=== PATIENT | female | born 1985 | race Caucasian/White ===

== ENCOUNTER → 2020-08-12 08:10 | Outpatient (BNVA) | payer OTHER, SELFPAY | PROVIDERS: Visit Provider Obstetrics & Gynecology | DX: Z32.01 Encounter for pregnancy test, result positive (principal) | CPT/HCPCS: 81025 ==

== ENCOUNTER → 2020-09-03 09:09 | Outpatient (BNVA) | payer OTHER, SELFPAY | PROVIDERS: Visit Provider Nurse Practitioner Women's Health | DX: O09.91 Supervision of high risk pregnancy, unspecified, first trimester (principal); O34.219 Maternal care for unspecified type scar from previous cesarean delivery; Z87.59 Personal history of other complications of pregnancy, childbirth and the puerperium; O36.80X0 Pregnancy with inconclusive fetal viability, not applicable or unspecified; A60.04 Herpesviral vulvovaginitis; R31.21 Asymptomatic microscopic hematuria; O98.311 Other infections with a predominantly sexual mode of transmission complicating pregnancy, first trimester; Z3A.08 8 weeks gestation of pregnancy | CPT/HCPCS: 84315; 87077; 87086; 87184 ==

== ENCOUNTER → 2020-09-16 11:21 | Outpatient (BNVA) | payer OTHER, SELFPAY | PROVIDERS: Visit Provider Obstetrics & Gynecology | DX: O09.91 Supervision of high risk pregnancy, unspecified, first trimester (principal); O21.9 Vomiting of pregnancy, unspecified; Z87.59 Personal history of other complications of pregnancy, childbirth and the puerperium; O34.219 Maternal care for unspecified type scar from previous cesarean delivery; A60.04 Herpesviral vulvovaginitis; O99.891 Other specified diseases and conditions complicating pregnancy; R82.71 Bacteriuria | CPT/HCPCS: 80053; 80307; 82570; 84156; 84315; 84443; 85027; 86592; 86762; 86803; 86850; 86900; 87086; 87340 ==

== ENCOUNTER → 2020-09-30 08:40 | Outpatient (BNVA) | payer OTHER, SELFPAY | PROVIDERS: Visit Provider Obstetrics & Gynecology | DX: O09.291 Supervision of pregnancy with other poor reproductive or obstetric history, first trimester (principal); O09.91 Supervision of high risk pregnancy, unspecified, first trimester; O21.9 Vomiting of pregnancy, unspecified; O34.219 Maternal care for unspecified type scar from previous cesarean delivery; A60.04 Herpesviral vulvovaginitis; O99.891 Other specified diseases and conditions complicating pregnancy; R82.71 Bacteriuria; N83.8 Other noninflammatory disorders of ovary, fallopian tube and broad ligament; Z3A.12 12 weeks gestation of pregnancy | CPT/HCPCS: 84315; 87086; 87491; 87591 ==

== ENCOUNTER → 2020-10-16 00:01 | Outpatient (BNVA) | payer OTHER, SELFPAY | PROVIDERS: Visit Provider Obstetrics & Gynecology | DX: Z87.59 Personal history of other complications of pregnancy, childbirth and the puerperium (principal) | CPT/HCPCS: 84156 ==

== ENCOUNTER → 2020-10-29 15:13 | Outpatient (BNVA) | payer OTHER, SELFPAY | PROVIDERS: Visit Provider Nurse Practitioner Women's Health | DX: O09.91 Supervision of high risk pregnancy, unspecified, first trimester (principal); Z87.59 Personal history of other complications of pregnancy, childbirth and the puerperium; O34.219 Maternal care for unspecified type scar from previous cesarean delivery; O99.891 Other specified diseases and conditions complicating pregnancy; R82.71 Bacteriuria; N83.8 Other noninflammatory disorders of ovary, fallopian tube and broad ligament; O21.9 Vomiting of pregnancy, unspecified; A60.04 Herpesviral vulvovaginitis | CPT/HCPCS: 84315; 87077; 87086; 87184 ==

== ENCOUNTER → 2020-12-03 10:40 | Outpatient (BNVA) | payer OTHER, SELFPAY | PROVIDERS: Visit Provider Obstetrics & Gynecology | DX: O99.891 Other specified diseases and conditions complicating pregnancy (principal); R82.71 Bacteriuria; O09.91 Supervision of high risk pregnancy, unspecified, first trimester | CPT/HCPCS: 84315; 87086 ==

== ENCOUNTER 2021-01-04 04:00 | Outpatient (CLI) | payer OTHER, SELFPAY ==
[2021-01-04] VITALS (55 sets, daily range): BP systolic 96–131; BP diastolic 51–86; PULSE 81–122; RESP 16; TEMP 36.2–36.4; O2SAT 95–99; BMI 34.2
--- NOTE | 2021-01-04 04:51 | USR_ITS ---
PROCEDURE INFORMATION: Exam: US , Limited Exam date and time: 01/04/2021 4:51 AM Age: 35 years old Clinical indication: Lmp or gestational age (in weeks): 26 weeks 1 day; Other: Vaginal bleeding; ; Patient HX: H/o c-sec; Additional info: Vaginal bleeding at 26 weeks, placental location and cervical length TECHNIQUE: Imaging protocol: Real-time ultrasound of the maternal uterus with image documentation. Exam focused on the clinical indication. COMPARISON: US OB follow up [facility] 12/24/2020 3:04 PM FINDINGS: Gestation: Intrauterine gestation. presentation: Breech presentation heart rate: heart rate 171 bpm. Placenta: Placenta is posterior; No previa. Amniotic fluid: Largest amniotic fluid pocket 9.4 cm BIOMETRY: Gestational age (AUA): Single live intrauterine gestation with the estimated gestational age of approximately 26 weeks 1 day by last menstrual period. Estimated due date (AUA): Estimated due date 04-11-21 MATERNAL: Cervix: Cervical length 3.3 cm US/US OB limited [id number] IMPRESSION: 1. Single live intrauterine gestation with the estimated gestational age of approximately 26 weeks 1 day by last menstrual period. . 2. heart rate 171 bpm.
[2021-01-04] MEDS: NIFEdipine 10 mg Capsule 30 MG PO (05:20)
[2021-01-04 05:44] LABS: Add Urine Culture? No; Bacteria Urine TRACE /hpf; Bilirubin Urine Neg (Negative); Blood Urine 3+ (Negative); Glucose Urine UA Norm (Normal); Ketones Urine Negative (Negative); Leukocyte Esterase Urine Negative (Negative); Nitrate Urine Negative (Negative); Protein Urine Neg (Negative); Squamous Epithelial Cell Urine 0-4 /hpf (0-5); Urine Appearance Clear (CLEAR); Urine Color Yellow (Yellow); Urobilinogen Urine 1 mg/dL (Negative); pH Urine 6 (5-7)
--- NOTE | 2021-01-04 10:48 | P.SS_ITS ---
Short Stay Summary Providers Date of Admit/Discharge: 01/04/21 Attending Provider: Norris Resendiz MD Primary Care Provider: [facility] Chief Complaint: VAGINAL BLEEDING HPI History of Present Illness Katharina Whitfield is a 35 year old female with an LMP of 07/05/2020 and an EDC of 04/11/2021 by LMP consistent with 8 week ultrasound, placing her at 26 1/7 weeks today. came to L&D with CC of vaginal bleeding. Review of Systems Const: Denies: fever(s) Card: Denies: swelling of feet/ankles GI: Reports: constipation; Denies: abdominal pain, nausea or vomiting : Denies: dysuria, vaginal bleeding (bleeding had stopped), vaginal discharge or other (contractions/leaking fluid ) Musc: Reports: back pain and other (right leg pain ) Neuro: Denies: headache(s) Home Meds/Allergies Home Medications and Allergies Home Medications Medication Instructions Recorded Confirmed Type L.acid,gasseri,plant,rham-B.animalis-cran mg PO 03/07/20 12/24/20 History 5 billion cell-250mg capsule acyclovir 400 mg tablet 400 mg PO BID 03/07/20 01/04/21 History prenat.vits,laurie,kwa-szkk-qzktc 1 tab PO DAILY 09/03/20 01/04/21 History aspirin 81 mg chewable tablet 81 mg PO DAILY 09/30/20 01/04/21 History acetaminophen 325 mg capsule 325 mg PO QID PRN 12/24/20 12/24/20 History Allergies Allergy/AdvReac Type Severity Reaction Status Date / Time No Known Allergies Allergy Verified 12/24/20 15:43 PFSH Acute PFSH: Medical History No pertinent past medical history Denies diabetes, asthma, hypertension, seizures, DVT/PE. PCP: Dr. Hilton Surgical History S/P primary low transverse 01/13/2019--performed by Dr. Navarro at [facility] in [place], [place] done for arrest of descent. Documented low transverse uterine incision with 2 layer closure of the uterus Family History Father Diabetes Grandfather Diabetes Paternal Family/Other Breast cancer Maternal aunt--- dx age 55 Sister Uterine cancer dx age 28 Mother Stroke Denies family history of Colon cancer Ovarian cancer Heart disease Hypercholesteremia Hypertension Thyroid disease Female Reproductive History: : 3 Vitals/I&O/Wt Last Vital Signs Temp 97.2 F L 01/04/21 04:26 Pulse 88 01/04/21 10:30 BP 118/73 01/04/21 10:30 Pulse Ox 98 01/04/21 08:12 Weight last 48 hrs Weight 84.822 kg Physical Exam Narrative: EXAM NARRATIVE: GA: Alert and oriented ?3. Lungs: Clear to auscultation bilaterally. Heart: Regular rhythm and rate. Abdomen: Gravid, full the height equals dates, nontender. TALENT DEVELOPMENT ANALYST: SVE; dilation: 0 cm, effacement: 0%, station: -5, presentation: [], membranes: []. Extremities: no edema, no cyanosis, no calves pain. heart tracing: Basal rate: 140's bpm, Variability: moderate for EGA, Accelerations: present, Decelerations: absent, Contraction: stopped. SSS Data Data Completed and Pending: Completed Studies During Hospitalization Category Date Time Status US OB limited [id number] Routine Ultrasound 01/04/21 04:51 Completed Diagnoses at Discharge Discharge Diagnosis (1) Vaginal bleeding during : Status: Acute Permanent problem details: Ms. Whitfield is a 35 year old with an LMP of 07/05/2020 and an EDC of 04/11/2021 by LMP consistent with 8 week ultrasound, placing her at 26 1/7 weeks today. Came to labor and delivery triage with a chief complaint of vaginal bleeding after intercourse with her . An ultrasound was ordered which was delayed and report was not available after the patient had been in triage for greater than 4 hours. Ultrasound correlate with estimated gestational age cervix is long and closed, the placenta is posterior no previa. uterine irritability has stopped. No further bleeding. Patient was discharged home with instructions and precautions on pelvic rest until further notice and follow-up with care as scheduled. (2) Rh negative, antepartum: Status: Acute (3) Previous delivery affecting : Status: Acute (4) Supervision of high-risk : Status: Acute Qualifiers: Trimester: first trimester Qualified Code(s): O09.91 - Supervision of high risk , unspecified, first trimester Discharge Plan Discharge Patient Disposition: Home Prescriptions: No Action acyclovir 400 mg tablet 400 mg PO BID RF: 0 up4 Probiotics Women's 5 billion cell- 250 mg capsule PO RF: 0 aspirin [Tylor Chewable Aspirin] 81 mg tablet,chewable 81 mg PO DAILY RF: 0 acetaminophen [Tylenol] 325 mg capsule 325 mg PO QID PRNRF: 0 prenat.vits,laurie,qzj-akag-hbiwu Tablet 1 tab PO DAILY RF: 0 Discharge Orders: Discharge Order (Routine); Ordered 01/04/21 Ordered By: Norris Resendiz Referrals: Megan Garduno MD [Physician] - 7-10 days (f/u as scheduled.) Diet: Usual diet Activity: Increase activity as tolerated Patient Instructions: Labor (GEN), OB Undelivered Discharge Activity Restrictions/Additional Instructions: Pelvic rest until further notice (no sex, no tampons, no vaginal douches). Return to the emergency room if any fever, increased bleeding or pain. Attestations Medical Necessity Statement*: In my professional opinion per chief complaint. Time Spent in Patient Care*: greater than 30 min Quality Metrics Clinical Quality Measures: During this hospital stay, did patient experience: None Coding Level of Care Code Acute Cosmetology Professor for Chg Fwd Diagnoses Vaginal bleeding during O46.90 Rh negative, antepartum O26.899; Z67.91 Previous delivery affecting O34.219 Supervision of high-risk O09.91 Trimester: first trimester
== END 2021-01-04 10:48 | disposition home or self-care (01) ==
LOC: OPOB 04:12 → OBGYN 04:16
PROVIDERS: Family Provider Obstetrics & Gynecology; Visit Provider Obstetrics & Gynecology
DX: O46.90 Antepartum hemorrhage, unspecified, unspecified trimester (principal); Z67.91 Unspecified blood type, Rh negative; O34.219 Maternal care for unspecified type scar from previous cesarean delivery; Z3A.00 Weeks of gestation of pregnancy not specified
CPT/HCPCS: 76815; 81001; 99211

== ENCOUNTER → 2021-01-23 09:40 | Outpatient (BNVA) | payer OTHER, SELFPAY | PROVIDERS: Family Provider Obstetrics & Gynecology; Visit Provider Obstetrics & Gynecology | DX: O09.91 Supervision of high risk pregnancy, unspecified, first trimester (principal); O26.899 Other specified pregnancy related conditions, unspecified trimester; Z67.91 Unspecified blood type, Rh negative; O99.891 Other specified diseases and conditions complicating pregnancy; R82.71 Bacteriuria; A60.04 Herpesviral vulvovaginitis; Z87.59 Personal history of other complications of pregnancy, childbirth and the puerperium | CPT/HCPCS: 82950; 84315; 85025; 86850 ==

== ENCOUNTER → 2021-03-18 12:38 | Outpatient (BNVA) | payer OTHER, SELFPAY | PROVIDERS: Family Provider Obstetrics & Gynecology; Visit Provider Obstetrics & Gynecology | DX: O09.91 Supervision of high risk pregnancy, unspecified, first trimester (principal) | CPT/HCPCS: 84315; 87081 ==

== ENCOUNTER 2021-03-30 09:45 | Inpatient (IN) | payer OTHER, SELFPAY ==
[2021-03-30] VITALS (34 sets, daily range): BP systolic 120–149; BP diastolic 65–98; PULSE 52–83; RESP 15–17; TEMP 36.3; O2SAT 95–96; BMI 32.5
[2021-03-30 10:15] LABS: Actim Prom Positive
[2021-03-30] MEDS: dextrose 5%-lactated ringers 1,000 ML 999 ML IV (10:19)
[2021-03-30 10:56] LABS: Bilirubin Urine Neg (Negative); Blood Urine Neg (Negative); Glucose Urine UA Norm (Normal); Ketones Urine Negative (Negative); Leukocyte Esterase Urine Negative (Negative); Nitrate Urine Negative (Negative); Protein Urine Neg (Negative); Specific Gravity, Urine 1.015 (1.005-1.030); Urine Appearance Clear (CLEAR); Urine Color Yellow (Yellow); Urobilinogen Urine Norm (Negative); pH Urine 8 (5-7)
[2021-03-30 11:02] LABS: Add Urine Culture? No; Bacteria Urine 1+ /hpf; Squamous Epithelial Cell Urine 15-25 /hpf (0-5)
[2021-03-30 12:14] LABS: Basophils % 0.3 %; Eosinophils % 0.2 %; Hematocrit 37.3 % (37.0-47.0); Hemoglobin 11.7 g/dL (11.5-15.3); Lymphocytes % 20.2 %; Mean Corpuscular HGB Conc 31.4 g/dL (30.0-36.0); Mean Corpuscular Hemoglobin 27.1 pg (28.0-34.0); Mean Corpuscular Volume 86.3 fl (81-99); Mean Platelet Volume 10.3 fL (7.4-10.4); Monocytes # 0.8 10^3/uL (0.2-0.9); Monocytes % 7.7 %; Neutrophils # 6.88 10^3/uL (1.8-7.7); Neutrophils % 71.2 %; Nucleated Red Blood Cells % 0 %; Platelet Count 190 10^3/cmm (130-400); Red Blood Count 4.32 10^6/uL (4.1-5.3); Red Cell Distribution Width 15.6 % (12.1-15.1); White Blood Count 9.7 10^3/uL (4.0-10.0)
--- NOTE | 2021-03-30 12:46 | PM.OPHPUD ---
Labor & Delivery H&P Update Date of Procedure: March 30, 2021 Date H&P Performed: 03/24/21 H&P update information: I have reviewed H&P completed within last 30 days, I have examined patient prior to procedure and Changes to prior documentation as noted here Changes to previous documentation: The patient presents for PROM. No cervical change. ROM confirmed with actin prom. Will proceed with repeat and BTL. Admission Diagnosis: iup at 38 weeks and 2 days Planned procedure: repeat with BTL Related Problem List Diagnoses (1) Rh negative, antepartum: (2) Request for sterilization: (3) History of gestational hypertension: (4) Previous delivery affecting : (5) Supervision of high-risk : (6) Herpes, vulvovaginitis:
[2021-03-30] MEDS: famotidine 20 mg/2 mL INJ IVP (13:14)
[2021-03-30] MEDS: lactated ringers 1,000 ML 999 ML IV ×2 (13:15→21:49)
--- NOTE | 2021-03-30 13:51 | ANES.PREANE2 ---
Pre-Anesthetic Assessment Pre-Anesthetic Assessment: Height/Weight: Height 1.57 m Weight 80.739 kg Pulse BP 67 136/83 03/30/21 12:52 03/30/21 12:52 Preop Diagnosis: IUP Proposed Procedure: Repeat Familial anesthetic complications: None Was Beta Guy taken within 24 hours: N/A Was Clonidine taken within 24 hours: N/A Last intake: Intake Last Liquid Date 03/30/21 Last Liquid Time 06:15 Last Solid Date 03/30/21 Last Solid Time 20:00 Social: Social History: No alcohol and No tobacco Exam: Pre-Anes Outpt Exam: alert, oriented x 3, clear to auscultation bilaterally and regular rate & rhythm Airway: Cervical ROM: WNL MP: 2 Dentition: Full CV/HEM: CV/HEM: HTN Comments: gestational HTN Anesthetic Plan: ASA status: 3 Anesthesia: Regional (specify below) (Spinal) Risk of > 500 ml blood loss (7ml/kg in children): No Meds/Allergies Current Medications: Current Medications Generic Name Dose Route Start Last Admin Trade Name Freq PRN Reason Stop Dose Admin Dextrose/Lactated Ringer's 1,000 mls @ 999 m ls/hr 03/30/21 10:15 03/30/21 10:19 Dextrose 5%-Lact ated Ringers IV 999 mls/hr .Q1H1M BHAVANA Administration Lactated Ringer's 1,000 mls @ 999 m ls/hr 03/30/21 13:15 03/30/21 13:15 Lactated Ringers IV 03/30/21 15:15 999 mls/hr .Q1H1M BHAVANA Administration PFSH Anesthesia PFSH: Medical History No pertinent past medical history Denies diabetes, asthma, hypertension, seizures, DVT/PE. PCP: Dr. Hilton Surgical History S/P primary low transverse 01/13/2019--performed by Dr. Navarro at [facility] in [place], [place] done for arrest of descent. Documented low transverse uterine incision with 2 layer closure of the uterus Family History Father Diabetes Grandfather Diabetes Paternal Family/Other Breast cancer Maternal aunt--- dx age 55 Sister Uterine cancer dx age 28 Mother Stroke Denies family history of Colon cancer Ovarian cancer Heart disease Hypercholesteremia Hypertension Thyroid disease Female Reproductive History: : 3 Data Anesthesia CBC & Chem 7: 03/30/21 11:55 Other Labs: Laboratory Results - last 48 hr 03/30/21 03/30/21 03/30/21 09:45 10:00 11:55 WBC 9.7 RBC 4.32 Hgb 11.7 Hct 37.3 MCV 86.3 MCH 27.1 L MCHC 31.4 RDW 15.6 H Plt Count 190 MPV 10.3 Neut % (Auto) 71.2 Lymph % (Auto) 20.2 [place] % (Auto) 7.7 Eos % (Auto) 0.2 Baso % (Auto) 0.3 Neut # (Auto) 6.88 Lymph # (Auto) 2.0 [place] # (Auto) 0.8 Eos # (Auto) 0.0 Baso # (Auto) 0.0 Nucleated RBC % (auto) 0 Nucleated RBCs # 0.0 Insulin-like GF I Positive Urine Color Yellow Urine Appearance Clear Urine pH 8 H Ur Specific [place] 1.015 Urine Protein Neg Urine Glucose (UA) Norm Urine Ketones Negative Urine Blood Neg Urine Nitrate Negative Urine Bilirubin Neg Urine Urobilinogen Norm Ur Leukocyte Esterase Negative Urine RBC None Urine WBC 10-15 H Ur Squamous Epith Cells 15-25 H Amorphous Sediment Not Reportable Urine Bacteria 1+ H Cardiac Studies: No Data to Display
[2021-03-30 14:07] LABS: Glucose Point of Care 58 mg/dL (70-110)
[2021-03-30] MEDS: dextrose 50% syringe 50 mL 25 ML IVP (14:17)
--- NOTE | 2021-03-30 14:25 | PC.NURSE ---
Patient hit call light and stated that she felt clammy, shaky, and felt like her blood sugar was low. Patient reports she has not ate since last night. Blood glucose was checked and order from anesthesia was received to give 1/2 d50 at this time.
--- NOTE | 2021-03-30 17:24 | P.OP_ITS ---
Operative Report Date of procedure: March 30, 2021 Pre-op Diagnosis: IUP at 38 weeks and 2 days, PROM, desires permanant sterilization Post-op diagnosis: same Procedure Done: repeat with bilateral salpingectomy Specimens removed/disposition: bilateral segments of fallopian tubes. Left tube with 3 cm mass. to pathology Surgeon: Shira Heck Anesthesia: Other (spinal) Estimated blood loss (mL): 200 IV fluids (mL): 1,750 Urine output (mL): 100 Complications: none Findings: term male in the cephalic presentation. Normal appearing uterus and ovaries. 3 cm mass on left fallopian tube. Bilateral tubes and mass removed Condition: stable Disposition: floor Brief History: The patient presented with complaint of PROM at 6:15 this am. ROM confirmed with Actinprom. Procedure: The patient was taken to the operating room where spinal anesthesia was administered and found to be adequate. She was prepped and draped in the normal sterile fashion in the dorsal supine position with a leftward tilt. A Pfannenstiel skin incision was made and carried down to the underlying layer of fascia. The fascia was nicked in the midline and extended laterally with the Alvarez scissors. The fascia was then tented up and the rectus muscles dissected off sharply. The rectus muscles were and the peritoneum entered bluntly with the digit. The peritoneal incision was extended superiorly and inferiorly with good visualization of the bladder. The Gil O retractor was placed. It was clear of any bowel or omentum. The bladder flap was created sharply with the Metzenbaum scissors. A low transverse uterine incision was made and carried down to the bag of water. The bag of water was ruptured and the uterine incision extended cephalocaudad. The scalp was grasped and brought through the incision. The nose and mouth were bulb suctioned. The shoulders and body delivered atraumatically. The baby was allowed to rest, while being dried, for 1 minute and then the cord was clamped and cut. The baby was handed to the waiting ribbon hanking machine operator. The placenta was delivered by expression. The uterus was exteriorized and cleared of all clots and debris. The uterine incision was closed with 0 Vicryl in a running fashion. A second imbricating layer of 3-0 Monocryl was used to close the uterus. The bladder flap was closed with 3-0 Monocryl. There was excellent hemostasis. Using the cautery device, the bilateral fallopian tubes were at the cornua of the uterus. The mesosalpinx was cauterized just inferior to the fallopian tubes until the entire tube was removed. This was performed the same way on both sides. The Gil O retractor was removed. The uterus was returned to the abdomen. The peritoneum was closed with 3-0 Monocryl, incorporating the rectus muscle. The fascia was closed with 0 Vicryl in 2 separate sutures overlapping in the midline. The skin was closed with absorbable amandeep. Apgars on baby 8 at 1 minute and 9 at 5 minutes. weight 8 pounds 12 ounces. Mother and baby were stable post delivery.
--- NOTE | 2021-03-30 18:00 | PC.NURSE ---
PT MOVED FROM OB-OR1 TO OB-8 VIA BED. ORIENTED TO ROOM/CALL LIGHT. INSTRUCTED NOT TO GET OUT OF BED WITHOUT ASSISTANCE AND NO FOOD OR DRINK UNLESS APPROVED BY NURSING STAFF.
[2021-03-30] MEDS: dextrose 5%-lactated ringers 1,000 ML 125 ML IV (18:05)
--- NOTE | 2021-03-30 20:07 | ANE.PACU2 ---
Inpatient post-anesthesia follow up: Airway intact: Yes Vital signs: Temperature 97.4 F Pulse Rate 58 Respiratory Rate 16 Blood Pressure 124/79 Pulse Oximetry 96 Oxygen Delivery Me thod Room Air Oxygen Flow Rate Fraction of Inspir ed Oxygen Hydration adequate: Yes Nausea and vomiting: No Pain level: 1 Mental status: Baseline
[2021-03-30] MEDS: ketorolac 30 mg/mL INJ IVP (22:59)
[2021-03-31] MEDS: FUROsemide 10 mg/mL SDV 2mL 20 MG IVP
[2021-03-31 02:00] VITALS: BP 140/90; PULSE 76; RESP 16
[2021-03-31] MEDS: HYDROcodone-acetaminophen 5-325 mg Tablet PO ×2 (07:19→13:31)
[2021-03-31 08:13] VITALS: BP 136/88; PULSE 56
--- NOTE | 2021-03-31 09:00 | PM.DCS ---
Discharge Providers Date of Admission: 03/30/21 09:45 Date of Discharge: March 31, 2021 Attending Provider at Admission: Shira Heck MD Attending Provider at Discharge: Shira Hekc MD Primary Care Provider: [facility] Diagnoses at Discharge Discharge Diagnosis (1) state: Status: Acute Reason for Visit Reason for Visit: contractions Hospital Course Hospital Course The patient was admitted for repeat cearean at term for PROM and contractions. The baby was [facility] in [place] with possible coarctation of the aorta. The patient is requesting discharge so that she can be at home with their daughter and her can go and be with the new baby. She did well postoperatively and is stable for discharge. Physical Exam Narrative: EXAM NARRATIVE: The patient is doing well this morning. She is tolerating a regular diet. She is ambulating without difficulty. Pain is well controlled. Const: COMMON NORMALS: no acute distress, patient oriented x3, no limitations, healthy appearing, alert and well nourished GENERAL APPEARANCE: cooperative, comfortable, well kempt and well developed ORIENTATION/CONSCIOUSNESS: Yes awake, Yes oriented to person, Yes oriented to place and Yes oriented to time Resp: COMMON NORMALS: normal respiratory effort EFFORT & INSPECTION: Yes able to speak in complete sentences GI: COMMON NORMALS: Soft to palpation and non-tender PALPATION: Yes Soft to palpation Extremity: COMMON NORMALS: no calf tenderness Neuro: COMMON NORMALS: patient oriented x3 SENSORIUM/ORIENTATION: Yes alert, Yes oriented to person, Yes oriented to place and Yes oriented to time Psych: APPEARANCE: Yes well kempt Urinary Catheter Management^: Mitchell: Cath Placed During This Visit: yes Reason for Continuing Indwelling Catheter: Perioperative Use in Selected Surgeries Urinary Catheter Date of Insertion: 03/30/21 Urinary Catheter Time of Insertion: 16:00 Discharge Data Data Completed and Pending: Pending at discharge Category Date Time Status Hemagram Timed Lab 03/31/21 06:00 Ordered Pathology: Surgic al [PTH] Routine Pth 03/30/21 17:35 Ordered Labs from last 24 hours 03/30/21 03/30/21 03/30/21 14:04 11:55 10:00 WBC 9.7 RBC 4.32 Hgb 11.7 Hct 37.3 MCV 86.3 MCH 27.1 L MCHC 31.4 RDW 15.6 H Plt Count 190 MPV 10.3 Neut % (Auto) 71.2 Lymph % (Auto) 20.2 [place] % (Auto) 7.7 Eos % (Auto) 0.2 Baso % (Auto) 0.3 Neut # (Auto) 6.88 Lymph # (Auto) 2.0 [place] # (Auto) 0.8 Eos # (Auto) 0.0 Baso # (Auto) 0.0 Nucleated RBC % (a uto) 0 Nucleated RBCs # 0.0 POC Glucose 58 L Insulin-like GF I Urine Color Yellow Urine Appearance Clear Urine pH 8 H Ur Specific Gravit y 1.015 Urine Protein Neg Urine Glucose (UA) Norm Urine Ketones Negative Urine Blood Neg Urine Nitrate Negative Urine Bilirubin Neg Urine Urobilinogen Norm Ur Leukocyte Rebecca ase Negative Urine RBC None Urine WBC 10-15 H Ur Squamous Epith Cells 15-25 H Amorphous Sediment Not Reportable Urine Bacteria 1+ H 03/30/21 09:45 WBC RBC Hgb Hct MCV MCH MCHC RDW Plt Count MPV Neut % (Auto) Lymph % (Auto) [place] % (Auto) Eos % (Auto) Baso % (Auto) Neut # (Auto) Lymph # (Auto) [place] # (Auto) Eos # (Auto) Baso # (Auto) Nucleated RBC % (a uto) Nucleated RBCs # POC Glucose Insulin-like GF I Positive Urine Color Urine Appearance Urine pH Ur Specific Gravit y Urine Protein Urine Glucose (UA) Urine Ketones Urine Blood Urine Nitrate Urine Bilirubin Urine Urobilinogen Ur Leukocyte Rebecca ase Urine RBC Urine WBC Ur Squamous Epith Cells Amorphous Sediment Urine Bacteria Vitals: Last Vital Signs Temp 97.4 F L 03/30/21 18:28 Pulse 56 L 03/31/21 08:13 Resp 16 03/31/21 02:00 BP 136/88 03/31/21 08:13 Pulse Ox 96 03/30/21 17:55 Discharge Plan Discharge Patient Disposition: Home Condition: Stable Prescriptions: New ibuprofen 800 mg Tablet 800 mg PO TID Qty: 30 RF: 0 hydrocodone-acetaminophen 5-325 mg Tablet 1 tab PO Q4H PRN (Reason: Moderate To Severe Pain) Qty: 30 RF: 0 docusate sodium 100 mg Capsule 100 mg PO BID Qty: 60 RF: 2 Paxil 10 mg tablet 10 mg PO DAILY Qty: 90 RF: 3 Continued acyclovir 400 mg tablet 400 mg PO BID RF: 0 up4 Probiotics Women's 5 billion cell- 250 mg capsule PO RF: 0 aspirin [Tylor Chewable Aspirin] 81 mg tablet,chewable 81 mg PO DAILY RF: 0 acetaminophen [Tylenol] 325 mg capsule 325 mg PO QID PRN (Reason: Abdominal Discomfort) RF: 0 prenat.vits,laurie,min-lknk-owvxn Tablet 1 tab PO DAILY RF: 0 famotidine [Pepcid] 20 mg tablet 20 mg PO DAILY RF: 0 ferrous sulfate See Rx Instructions PO DAILY RF: 0 Discharge Orders: Discharge Order (Routine); Ordered 03/31/21 Ordered By: Shira Heck Referrals: Megan Garduno MD [Physician] - 05/18/21 10:00 am (Your 6 week post- appointment is scheduled for 05/18/21 @10:[address] Navarro. ) Shira Heck MD [Physician] - 04/06/21 8:15 am (Your 1 week incision check is scheduled for 04/06/2021 @8:15 with . ) Patient Instructions: Depression (DC), Bleeding (DC), Preeclampsia and Eclampsia After Delivery (GEN), OB WHC, OB Discharge Report, OB Food/Drug Interaction Guide, Opioid Safety, OB Home Care Discharge Attestations Time Spent in Discharge Care*: less than 30 min Quality Metrics Clinical Quality Measures During this hospital stay, did patient experience: None Coding Level of Care Code Acute Chg FW DC note Diagnoses state Z39.2
[2021-03-31 10:01] VITALS: BP 127/78; PULSE 71; RESP 17; TEMP 36.5; O2SAT 97
[2021-03-31] MEDS: prenatal vitamin Capsule 1 CAP PO (10:44)
[2021-03-31] MEDS: ferrous sulfate EC 325 mg Tablet PO (10:44)
[2021-03-31] MEDS: docusate sodium 100 mg Capsule PO (10:44)
[2021-03-31] MEDS: famotidine 20 mg Tablet PO (10:45)
[2021-03-31] MEDS: acyclovir 400 mg Tablet PO (10:45)
[2021-03-31 13:22] LABS: Hematocrit 34.7 % (37.0-47.0); Mean Corpuscular HGB Conc 31.7 g/dL (30.0-36.0); Mean Corpuscular Hemoglobin 27.8 pg (28.0-34.0); Mean Corpuscular Volume 87.6 fl (81-99); Mean Platelet Volume 10.4 fL (7.4-10.4); Platelet Count 189 10^3/cmm (130-400); Red Blood Count 3.96 10^6/uL (4.1-5.3); Red Cell Distribution Width 15.7 % (12.1-15.1); White Blood Count 11.8 10^3/uL (4.0-10.0)
[2021-03-31] MEDS: ibuprofen 800 mg tablet PO (13:31)
[2021-03-31 15:32] VITALS: BP 123/82; PULSE 76; RESP 16; TEMP 36.4
[2021-03-31 15:41] VITALS: PULSE 76; RESP 16; TEMP 36.4
== END 2021-03-31 15:45 | disposition home or self-care (01) | DRG 783 ==
LOC: OPOB 16:29 → OBGYN 03-31 09:00
PROVIDERS: Admitting Provider Obstetrics & Gynecology; Family Provider Obstetrics & Gynecology; Visit Provider Obstetrics & Gynecology
PROC: 10D00Z1 Extraction of Products of Conception, Low, Open Approach (ICD-10-PCS; CPT 59514; principal; 2021-03-30 15:35)
DX: O34.211 Maternal care for low transverse scar from previous cesarean delivery (principal); O75.3 Other infection during labor; O36.0930 Maternal care for other rhesus isoimmunization, third trimester, not applicable or unspecified; O98.52 Other viral diseases complicating childbirth; Z3A.38 38 weeks gestation of pregnancy; Z37.0 Single live birth; O13.4 Gestational [pregnancy-induced] hypertension without significant proteinuria, complicating childbirth; B00.9 Herpesviral infection, unspecified; Z30.2 Encounter for sterilization; N83.9 Noninflammatory disorder of ovary, fallopian tube and broad ligament, unspecified; O75.89 Other specified complications of labor and delivery
CPT/HCPCS: 36415; 36416; 36430; 59025; 81001; 82962; 84112; 85025; 85027; 86850; 86900; 88302; 90384; 99211; J0690; J1885; J1940; J2274; J2405; J3490; J8499

== ENCOUNTER → 2022-01-11 16:00 | Outpatient (BNVA) | payer OTHER, SELFPAY | PROVIDERS: Family Provider Obstetrics & Gynecology; PCP Family Medicine; Visit Provider Obstetrics & Gynecology | DX: Z01.419 Encounter for gynecological examination (general) (routine) without abnormal findings (principal) | CPT/HCPCS: 87624 ==

== ENCOUNTER → 2022-05-30 11:09 | Outpatient (BNVA) | payer OTHER, SELFPAY | PROVIDERS: Family Provider Obstetrics & Gynecology; PCP Family Medicine; Visit Provider Registered Nurse Neonatal Intensive Care | DX: R50.9 Fever, unspecified (principal) | CPT/HCPCS: 87400 ==

== ENCOUNTER 2022-08-05 07:36 | Outpatient (CLI) | payer OTHER, SELFPAY ==
--- NOTE | 2022-08-05 07:55 | MM_ITS ---
WS: [id number] DIAGNOSTIC BILATERAL DIGITAL BREAST TOMOSYNTHESIS MAMMOGRAPHY WITH CAD LEFT breast ultrasound, limited HISTORY: LT BREAST PAIN, 36-year-old. COMPARISON: None available. TECHNIQUE: Bilateral craniocaudad, mediolateral oblique, and mediolateral views are submitted with to moskp and EDGAR. Spot compression LEFT CC. Computer aided detection utilized. Breast composition: The breasts are heterogeneously dense, which may obscure small masses. Pain marke r is placed over the LEFT breast along 12:00 and 9:00. No abnormalities are identified in these locat ions. Breasts are normal in appearance. No calcifications. LEFT breast ultrasound, limited. Ultrasound LEFT breast in the 9-12 o'clock axis. There is no abnormality identified. No masses or sha dowing. No skin thickening. MM/[id number] IMPRESSION: BI-RADS: 2-Benign FOLLOW UP: 1 Year Follow-up
== END 2022-08-05 07:37 | disposition home or self-care (01) ==
LOC: RAD 07:37
PROVIDERS: PCP Family Medicine; Visit Provider Nurse Practitioner Women's Health
DX: N64.4 Mastodynia (principal)
CPT/HCPCS: 76642; 77062; G0279

== ENCOUNTER → 2023-03-18 08:33 | Outpatient (BNVA) | payer OTHER, SELFPAY | PROVIDERS: PCP Family Medicine; Visit Provider Family Medicine | DX: Z51.81 Encounter for therapeutic drug level monitoring (principal); Z13.220 Encounter for screening for lipoid disorders; Z00.00 Encounter for general adult medical examination without abnormal findings | CPT/HCPCS: 80053; 80061; 85025 ==

== ENCOUNTER → 2023-03-30 09:41 | Outpatient (BNVA) | payer OTHER, SELFPAY | PROVIDERS: PCP Family Medicine; Visit Provider Family Medicine | DX: Z12.4 Encounter for screening for malignant neoplasm of cervix (principal); Z01.419 Encounter for gynecological examination (general) (routine) without abnormal findings | CPT/HCPCS: 87624 ==

== ENCOUNTER → 2023-11-05 15:43 | Outpatient (BNVA) | payer OTHER, SELFPAY | PROVIDERS: PCP Family Medicine; Visit Provider Nurse Practitioner | DX: S99.912A Unspecified injury of left ankle, initial encounter (principal); X58.XXXA Exposure to other specified factors, initial encounter | CPT/HCPCS: 73610 ==

== ENCOUNTER → 2024-04-04 17:47 | Outpatient (BNVA) | payer OTHER, SELFPAY | PROVIDERS: PCP Family Medicine; Visit Provider Registered Nurse Neonatal Intensive Care | DX: J02.9 Acute pharyngitis, unspecified (principal) | CPT/HCPCS: 87070; 87880 ==

== ENCOUNTER → 2024-04-19 10:47 | Outpatient (BNVA) | payer OTHER, SELFPAY | PROVIDERS: PCP Family Medicine; Visit Provider Family Medicine | DX: Z00.00 Encounter for general adult medical examination without abnormal findings (principal); Z13.220 Encounter for screening for lipoid disorders; Z51.81 Encounter for therapeutic drug level monitoring; E55.9 Vitamin D deficiency, unspecified; K12.0 Recurrent oral aphthae | CPT/HCPCS: 80053; 80061; 82306; 85025; 86592; 87624 ==

== ENCOUNTER → 2025-04-22 08:45 | Outpatient (BNVA) | payer OTHER, SELFPAY | PROVIDERS: PCP Family Medicine; Visit Provider Family Medicine | DX: Z51.81 Encounter for therapeutic drug level monitoring (principal); Z13.6 Encounter for screening for cardiovascular disorders; Z00.00 Encounter for general adult medical examination without abnormal findings; R53.81 Other malaise; R53.83 Other fatigue; E55.9 Vitamin D deficiency, unspecified | CPT/HCPCS: 80053; 80061; 82306; 83550; 84439; 84443; 85025 ==